=== PATIENT | female | born 1990 | race Caucasian/White ===

== ENCOUNTER → 2017-10-25 | Outpatient (CLI) | payer BC ==
--- NOTE | 2017-10-25 08:16 | US ---
EXAMINATION TYPE: US transvaginal DATE OF EXAM: 10/25/2017 COMPARISON: 12/31/2004 CLINICAL HISTORY: 27-year-old female R63.5 abnormal weight gain; patient's concern is for PCOS; mense s are regular TECHNIQUE: Transvaginal (TV) per order. Date of LMP: 10/08/2017 Findings: Uterus: Retroverted measuring 7.9 x 3.3 x 3.5 cm. Small amount of fluid along the endocervical jeff l. Endometrial Stripe: 1.0 cm, within normal limits for day 17 of the menstrual cycle. Right Ovary: 2.4 x 2.4 x 1.4 cm for a volume of 4.3 mL. There is a 1.7 cm dominant follicle or funct ional cyst within. Left Ovary: 2.6 x 2.8 x 1.9 cm for a volume of 6.9 mL. Multiple follicles are present of varying siz es, many of which are peripherally oriented but some remain centrally in the ovary. Largest measures 9 mm with some internal debris or hemorrhage. No evident adnexal abnormality. Small amount of cul-de-sac free fluid likely physiologic. IMPRESSION: 1. Ovarian sizes as above. While there are multiple follicles in the left ovary, the overall size of the ovaries does not meet criteria for polycystic ovaries. Further clinical correlation recommended. Ultrasound follow-up as indicated. 2. A 1 cm thick endometrial stripe within normal limits for day 17. 3. Small amount of cul-de-sac free fluid.
== END | disposition home or self-care (01) ==
LOC: RADUSWWP 06:57
PROVIDERS: ATTEND Family Medicine
DX: R63.5 Abnormal weight gain (principal)
CPT/HCPCS: 76830

== ENCOUNTER 2018-11-30 04:08 | Emergency (ER) | payer BC ==
[2018-11-30 04:17] VITALS: RESP 18; TEMP 98.1
[2018-11-30] MEDS ORDERED: ONDANSETRON 4 MG/2 ML VIAL IVP STA (04:34)
[2018-11-30] MEDS ORDERED: SODIUM CHLORIDE 0.9% 1,000 ML IV STA (04:34)
--- NOTE | 2018-11-30 04:35 | ED ---
Nausea/Vomiting/Diarrhea HPI - General Chief complaint: Nausea/Vomiting/Diarrhea Stated complaint: Diarrhea Time Seen by Provider: 11/30/18 04:34 Source: patient Mode of arrival: ambulatory Limitations: physical limitation - History of Present Illness Initial comments: Lydia is a previously healthy 28-year-old female presents to the emergency department today for evaluation of nausea vomiting and diarrhea. Patient reports that throughout the day on Wednesday she had multiple episodes of nonbloody diarrhea. She had some mild abdominal cramping. She reports that she went about her usual time but woke around 1 AM with nausea and she's had a couple episodes of nonbloody nonbilious emesis. Patient reports she has mild epigastric abdominal discomfort, in addition she was feeling lightheaded and was concerned she may be dehydrated which prompted her come to the ER for evaluation. - Related Data Home Medications Medication Instructions Recorded Confirmed Loratadine [Claritin] 10 mg PO DAILY 11/30/18 11/30/18 Previous Rx's Medication Instructions Recorded Ondansetron [Zofran ODT] 4 mg PO Q8HR #12 tab 11/30/18 Allergies Allergy/AdvReac Type Severity Reaction Status Date / Time cefuroxime [From Ceftin] Allergy Rash/Hives Verified 11/30/18 04:17 Review of Systems ROS Statement: Those systems with pertinent positive or pertinent negative responses have been documented in the HPI. ROS Other: All systems not noted in ROS Statement are negative. Past Medical History Past Medical History: No Reported History History of Any Multi-Drug Resistant Organisms: None Reported Past Surgical History: Adenoidectomy, Tonsillectomy Past Psychological History: No Psychological Hx Reported Smoking Status: Never smoker Past Alcohol Use History: Occasional Past Drug Use History: None Reported General Exam - General Exam Comments Initial Comments: Physical Exam GENERAL: Patient is well-developed and well-nourished. Patient is nontoxic and well- hydrated and is in no distress. HENT: Normocephalic, Atraumatic. EYES: PERRL, EOMI PULMONARY: Unlabored respirations. No audible rales rhonchi or wheezing was noted. CARDIOVASCULAR: There is a regular rate and rhythm without any murmurs gallops or rubs. ABDOMEN: Soft and nontender with normal bowel sounds. SKIN: Skin is clear with no lesions or rashes and otherwise unremarkable. : Deferred NEUROLOGIC: Patient is alert and oriented x3. Moving all extremities spontaneously MUSCULOSKELETAL: Normal extremities with adequate strength and full range of motion. No lower extremity swelling or edema. No calf tenderness. PSYCHIATRIC: Normal psychiatric evaluation. Limitations: no limitations Limitations: physical limitation Course Vital Signs 11/30/18 11/30/18 04:12 05:26 Temperature 98.1 F Pulse Rate 108 H 96 Respiratory 18 18 Rate Blood Pressure 137/91 119/65 O2 Sat by Pulse 99 99 Oximetry Medical Decision Making - Medical Decision Making Patient was seen and evaluated, history is obtained from patient and review of medical record Labs, Zofran and IV fluids ordered Labs were unremarkable Results patient was reevaluated she reports feeling much better after Zofran and fluids. Results were discussed with the patient was comfortable with the plan for discharge home and outpatient follow-up. Patient will be given a Zofran ODT starter pack as well as prescription for Zofran, the importance of oral rehydration therapy was discussed with the patient. All questions pertaining care were answered return parameters were discussed patient was discharged home in stable condition. - Lab Data Result diagrams: 11/30/18 04:45 11/30/18 04:45 Lab Results 11/30/18 11/30/18 11/30/18 Range/Units 04:37 04:37 04:45 WBC 9.9 (3.8-10.6) k/uL RBC 4.82 (3.80-5.40) m/uL Hgb 14.1 (11.4-16.0) gm/dL Hct 44.3 (34.0-46.0) % MCV 91.8 (80.0-100.0) fL MCH 29.3 (25.0-35.0) pg MCHC 31.9 (31.0-37.0) g/dL RDW 15.0 (11.5-15.5) % Plt Count 268 (150-450) k/uL Neutrophils % 87 % Lymphocytes % 9 % Monocytes % 3 % Eosinophils % 1 % Basophils % 0 % Neutrophils # 8.5 H (1.3-7.7) k/uL Lymphocytes # 0.9 L (1.0-4.8) k/uL Monocytes # 0.3 (0-1.0) k/uL Eosinophils # 0.1 (0-0.7) k/uL Basophils # 0.0 (0-0.2) k/uL Sodium (137-145) mmol/L Potassium (3.5-5.1) mmol/L Chloride (98-107) mmol/L Carbon Dioxide (22-30) mmol/L Anion Gap mmol/L BUN (7-17) mg/dL Creatinine (0.52-1.04) mg/dL Est GFR (CKD-EPI)AfAm (>60 ml/min/1.73 sqM) Est GFR (CKD-EPI)NonAf (>60 ml/min/1.73 sqM) Glucose (74-99) mg/dL Calcium (8.4-10.2) mg/dL Total Bilirubin (0.2-1.3) mg/dL AST (14-36) U/L ALT (9-52) U/L Alkaline Phosphatase (38-126) U/L Total Protein (6.3-8.2) g/dL Albumin (3.5-5.0) g/dL Lipase (23-300) U/L Urine Color Light Yellow Urine Appearance Clear (Clear) Urine pH 5.0 (5.0-8.0) Ur Specific [place] 1.021 (1.001-1.035) Urine Protein Negative (Negative) Urine Glucose (UA) Negative (Negative) Urine Ketones 3+ H (Negative) Urine Blood Negative (Negative) Urine Nitrite Negative (Negative) Urine Bilirubin Negative (Negative) Urine Urobilinogen <2.0 (<2.0) mg/dL Ur Leukocyte Esterase Negative (Negative) Urine HCG, Qual Not Detected (Not Detectd) 11/30/18 Range/Units 04:45 WBC (3.8-10.6) k/uL RBC (3.80-5.40) m/uL Hgb (11.4-16.0) gm/dL Hct (34.0-46.0) % MCV (80.0-100.0) fL MCH (25.0-35.0) pg MCHC (31.0-37.0) g/dL RDW (11.5-15.5) % Plt Count (150-450) k/uL Neutrophils % % Lymphocytes % % Monocytes % % Eosinophils % % Basophils % % Neutrophils # (1.3-7.7) k/uL Lymphocytes # (1.0-4.8) k/uL Monocytes # (0-1.0) k/uL Eosinophils # (0-0.7) k/uL Basophils # (0-0.2) k/uL Sodium 137 (137-145) mmol/L Potassium 3.8 (3.5-5.1) mmol/L Chloride 108 H (98-107) mmol/L Carbon Dioxide 20 L (22-30) mmol/L Anion Gap 9 mmol/L BUN 11 (7-17) mg/dL Creatinine 0.45 L (0.52-1.04) mg/dL Est GFR (CKD-EPI)AfAm >90 (>60 ml/min/1.73 sqM) Est GFR (CKD-EPI)NonAf >90 (>60 ml/min/1.73 sqM) Glucose 118 H (74-99) mg/dL Calcium 8.9 (8.4-10.2) mg/dL Total Bilirubin 0.7 (0.2-1.3) mg/dL AST 20 (14-36) U/L ALT 17 (9-52) U/L Alkaline Phosphatase 60 (38-126) U/L Total Protein 7.3 (6.3-8.2) g/dL Albumin 4.5 (3.5-5.0) g/dL Lipase 42 (23-300) U/L Urine Color Urine Appearance (Clear) Urine pH (5.0-8.0) Ur Specific [place] (1.001-1.035) Urine Protein (Negative) Urine Glucose (UA) (Negative) Urine Ketones (Negative) Urine Blood (Negative) Urine Nitrite (Negative) Urine Bilirubin (Negative) Urine Urobilinogen (<2.0) mg/dL Ur Leukocyte Esterase (Negative) Urine HCG, Qual (Not Detectd) Disposition Clinical Impression: Nausea vomiting and diarrhea Disposition: HOME SELF-CARE Instructions (If sedation given, give patient instructions): Acute Nausea and Vomiting (ED) Prescriptions: Ondansetron [Zofran ODT] 4 mg PO Q8HR #12 tab Is patient prescribed a controlled substance at d/c from ED?: No Referrals: Russell Montoya MD [Primary Care Provider] - 1-2 days
[2018-11-30 04:48] LABS: Appearance,Urine Clear (Clear); Bilirubin,Urine Negative (Negative); Blood,Urine Negative (Negative); Color,Urine Light Yellow; Glucose,Urine (UA) Negative (Negative); Ketones,Urine 3+ (Negative); Leukocyte Esterase,Urine Negative (Negative); Nitrite,Urine Negative (Negative); Protein,Urine Negative (Negative); Specific Gravity,Urine 1.021 (1.001-1.035); Urobilinogen,Urine <2.0 mg/dL (<2.0)
[2018-11-30 04:54] LABS: Basophils % (A) 0 %; Eosinophils # (A) 0.1 k/uL (0-0.7); Eosinophils % (A) 1 %; HCT 44.3 % (34.0-46.0); HGB 14.1 gm/dL (11.4-16.0); Lymphocytes # (A) 0.9 k/uL (1.0-4.8); Lymphocytes % (A) 9 %; MCH 29.3 pg (25.0-35.0); MCHC 31.9 g/dL (31.0-37.0); MCV 91.8 fL (80.0-100.0); Mean Platelet Volume 6.2; Monocytes # (A) 0.3 k/uL (0-1.0); Monocytes % (A) 3 %; Neutrophils # (A) 8.5 k/uL (1.3-7.7); Neutrophils % (A) 87 %; Platelet Count 268 k/uL (150-450); RBC 4.82 m/uL (3.80-5.40); WBC 9.9 k/uL (3.8-10.6)
[2018-11-30 05:09] LABS: ALT 17 U/L (9-52); AST 20 U/L (14-36); Albumin 4.5 g/dL (3.5-5.0); Alkaline Phosphatase 60 U/L (38-126); Blood Urea Nitrogen 11 mg/dL (7-17); Calcium 8.9 mg/dL (8.4-10.2); Carbon Dioxide 20 mmol/L (22-30); Glucose 118 mg/dL (74-99); Lipase 42 U/L (23-300); Potassium 3.8 mmol/L (3.5-5.1); Sodium 137 mmol/L (137-145); Total Bilirubin 0.7 mg/dL (0.2-1.3); Total Protein 7.3 g/dL (6.3-8.2)
[2018-11-30 05:17] LABS: Anion Gap 9 mmol/L; Chloride 108 mmol/L (98-107)
[2018-11-30 05:28] VITALS: BP 119/65; PULSE 96
[2018-11-30] MEDS ORDERED: ONDANSETRON 4 MG ODT STARTER PACK 2 TAB BTL PO STA (05:54)
== END 2018-11-30 06:01 | disposition home or self-care (01) ==
LOC: EC 04:08
DX: R11.2 Nausea with vomiting, unspecified (principal); R19.7 Diarrhea, unspecified; R10.13 Epigastric pain; Z79.899 Other long term (current) drug therapy; Z88.1 Allergy status to other antibiotic agents
CPT/HCPCS: 36415; 80053; 83690; 85025; 81003; 81025; 99283; 96374; 96361; J2405; S0119

== ENCOUNTER 2020-07-27 22:35 | Inpatient (IN) | payer BC ==
[2020-07-27 22:51] LABS: Appearance,Urine Clear (Clear); Bilirubin,Urine Negative (Negative); Blood,Urine Negative (Negative); Color,Urine Light Yellow; Glucose,Urine (UA) Negative (Negative); Ketones,Urine Negative (Negative); Leukocyte Esterase,Urine Negative (Negative); Nitrite,Urine Negative (Negative); PH, Urine 7.5 (5.0-8.0); Protein,Urine Negative (Negative); Specific Gravity,Urine 1.006 (1.001-1.035); Urobilinogen,Urine <2.0 mg/dL (<2.0)
[2020-07-27 23:11] LABS: Creatinine,Urine Random 18.5 mg/dL; Protein/Creatinine Ratio,Urine 0.703
[2020-07-27 23:38] LABS: Basophils # (A) 0.1 k/uL (0-0.2); Basophils % (A) 1 %; Eosinophils # (A) 0.1 k/uL (0-0.7); Eosinophils % (A) 1 %; HGB 13.2 gm/dL (11.4-16.0); Lymphocytes % (A) 22 %; MCH 31.4 pg (25.0-35.0); MCHC 34.6 g/dL (31.0-37.0); MCV 90.7 fL (80.0-100.0); Mean Platelet Volume 6.7; Monocytes # (A) 0.6 k/uL (0-1.0); Monocytes % (A) 7 %; Neutrophils # (A) 6.1 k/uL (1.3-7.7); Neutrophils % (A) 69 %; Platelet Count 226 k/uL (150-450); RBC 4.19 m/uL (3.80-5.40); RDW 12.5 % (11.5-15.5); WBC 8.9 k/uL (3.8-10.6)
[2020-07-27 23:47] LABS: INR 0.9 (<1.2); Partial Thromboplastin Time 22.9 sec (22.0-30.0); Prothrombin Time 9.5 sec (9.0-12.0)
[2020-07-27 23:54] LABS: ALT 18 U/L (4-34); AST 22 U/L (14-36); African American GFR (CKD) >90 (>60 ml/min/1.73 sqM); Blood Urea Nitrogen 10 mg/dL (7-17); LDH 415 U/L (313-618); Non-African American GFR(CKD) >90 (>60 ml/min/1.73 sqM); Uric Acid 4.1 mg/dL (3.7-7.4)
--- NOTE | 2020-07-28 00:34 | P.HPOB ---
History of Present Illness H&P Date: 07/28/20 Chief Complaint: High blood pressure This patient is a pleasant 30-year-old 1 para 0 female estimated date of confinement 08/20/2020 estimated gestational age 36-5/7 weeks who called me earlier this evening with complaints of an elevated blood pressure 150/90. Patient was uncertain at that time if this was accurate or not. She most recently was seen in the office on the and had a blood pressure 132/90 to 133/78. Patient's .'s be complicated by marginal previa which resolved. care is with Dr. Anderson. care otherwise has been u ncomplicated. Patient did have a headache but she said she's had this on off throughout the . No other signs or symptoms. Blood pressure on admission was 142/92. With rest it does come down but then goes back up to 130s over 90s. Preeclampsia labs are normal with the exception of elevated protein to creatinine ratio 0.7 Review of Systems Genitourinary: Reports Menstruation: Reports amenorrhea Past Medical History Past Medical History: No Reported History History of Any Multi-Drug Resistant Organisms: None Reported Past Surgical History: Adenoidectomy, Tonsillectomy Past Psychological History: No Psychological Hx Reported Smoking Status: Never smoker Past Alcohol Use History: None Reported Past Drug Use History: None Reported Medications and Allergies Home Medications Medication Instructions Recorded Confirmed Type Loratadine [Claritin] 10 mg PO DAILY 11/30/18 07/27/20 History Ondansetron [Zofran ODT] 4 mg PO Q8HR #12 tab 11/30/18 07/27/20 Rx Pnv No.95/Ferrous Fum/Folic AC 1 tab PO ONCE 07/27/20 07/27/20 History [ Multivitamin Tablet] Allergies Allergy/AdvReac Type Severity Reaction Status Date / Time cefuroxime [From Ceftin] Allergy Rash/Hives Verified 07/27/20 22:39 Exam Intake and Output 07/27/20 07/27/20 07/28/20 14:59 22:59 06:59 Other: Weight 96.615 kg - OBG Physical Exam Cervix: Cervix per the RN is 1 cm and thick Uterus: enlarged Results blood work shows she is O positive, rubella immune, RPR nonreactive, hepatitis B negative, group B strep was negative, most recent ultrasound showed 6 lbs. 10 oz. which is 87th percentile. Result Diagrams: 07/27/20 23:24 07/27/20 23:24 Abnormal Lab Results - Last 24 Hours (Table) 07/27/20 07/27/20 Range/Units 23:24 23:24 Fibrinogen 504 H (200-500) mg/dL Creatinine 0.33 L (0.52-1.04) mg/dL Assessment and Plan Assessment: This is a 30-year-old 1 para 0 female 36-5/7 weeks' gestation admitted for observation of gestational hypertension. At this time patient does not have severe features but does have an elevated protein to creatinine ratio therefore we will admit for serial blood pressures, 24-hour urine, and close observation. I did discuss with the patient possible need for delivery at 37 weeks. (1) 36 weeks gestation of Current Visit: Yes Status: Acute Code(s): Z3A.36 - 36 WEEKS GESTATION OF SNOMED Code(s): 11873713 (2) Gestational hypertension Current Visit: Yes Status: Acute Code(s): O13.9 - GESTATIONAL HTN W/O SIGNIFICANT PROTEINURIA, UNSP TRIMESTER SNOMED Code(s): 386632731
--- NOTE | 2020-07-28 06:59 | P.PN ---
Progress Note - Text Progress Note Date: 07/28/20 Patient is resting overnight without new complaints. She states that her headache has subsided. Blood pressures are completely normal. 24 urine is in process. I discussed further management with the patient and plan today is to do a nonstress tests every shift. Complete the 24-hour urine. Based on her results and blood pressures then Dr. Anderson we'll decide when to deliver or to continue monitoring. Patient is not 37 weeks at at this time.
[2020-07-29 00:52] LABS: Total Volume 24 Hour,Urine 3100 mls (800-1800)
[2020-07-29 01:05] LABS: Total Protein 24 Hour,Urine 341 mg/24hr (42.0-225.0)
[2020-07-29] MEDS ORDERED: DINOPROSTONE 10 MG INSERT.ER VAGINAL ONE (16:00)
--- NOTE | 2020-07-29 17:17 | P.PN ---
Progress Note - Text Progress Note Date: 07/29/20 Patient seen and examined at bedside. Her blood pressures have remained normal though she did had an elevated 1 upon admission. Her 24 hour urine came back 341 mg. Diagnosing her with mild preeclampsia and will move towards delivery. Her cervix currently is fingertip and thick and -3 station. heart tones are 135 with moderate variability and reactive. I will place Cervidil this evening and then amniotomy with Pitocin in the morning for induction of labor. The entire plan was discussed with the patient she expresses complete understanding.
[2020-07-29] MEDS ORDERED: BUTORPHANOL 1 MG/ML 1 ML VIAL IV PRN (19:15)
[2020-07-30] MEDS ORDERED: TERBUTALINE 1 MG/ML VIAL SQ PRN (05:22)
[2020-07-30] MEDS ORDERED: METHYLERGONOVINE 0.2 MG/ML 1 ML AMP IM PRN (05:22)
[2020-07-30] MEDS ORDERED: LIDOCAINE 0.5% (PF) 5 MG/ML (50 ML SDV) SQ PRN (05:22)
[2020-07-30] MEDS ORDERED: OXYTOCIN 10 UNIT/ML 1 ML VIAL IM PRN (05:22)
[2020-07-30] MEDS ORDERED: CARBOPROST TROMETHAMINE 250 MCG/ML 1 ML AMP IM PRN (05:22)
[2020-07-30] MEDS: LACTATED RINGERS 1,000 ML IV SCH ×4 (07:00→22:49)
[2020-07-30] MEDS: OXYTOCIN 30 UNITS/500 ML NS 30 UNIT in SALINE 1 500ML.BAG IV SCH ×2 (07:27→19:20)
[2020-07-30 07:34] LABS: Basophils % (A) 0 %; Eosinophils # (A) 0.1 k/uL (0-0.7); Eosinophils % (A) 1 %; HCT 39.7 % (34.0-46.0); Lymphocytes # (A) 1.8 k/uL (1.0-4.8); Lymphocytes % (A) 20 %; MCH 30.2 pg (25.0-35.0); MCHC 32.7 g/dL (31.0-37.0); MCV 92.6 fL (80.0-100.0); Mean Platelet Volume 6.9; Monocytes # (A) 0.4 k/uL (0-1.0); Monocytes % (A) 4 %; Neutrophils # (A) 6.7 k/uL (1.3-7.7); Neutrophils % (A) 73 %; Platelet Count 241 k/uL (150-450); RBC 4.29 m/uL (3.80-5.40); WBC 9.1 k/uL (3.8-10.6)
[2020-07-30] MEDS ORDERED: AMPICILLIN 2,000 MG in SODIUM CHLORIDE 0.9% 100 ML IVPB ONE (20:00)
[2020-07-31] MEDS: AMPICILLIN 1,000 MG in SODIUM CHLORIDE 0.9% 50 ML IVPB SCH ×3 (00:20→08:12)
[2020-07-31] MEDS ORDERED: SODIUM CHLORIDE 0.9% 100 ML BAG ONE (02:41)
[2020-07-31] MEDS ORDERED: fentaNYL (PF) 50 MCG/ML 5 ML AMP ONE (02:41)
[2020-07-31] MEDS ORDERED: ROPIVACAINE 5MG/ML 20ML VIAL ONE (02:41)
[2020-07-31] MEDS: LACTATED RINGERS 1,000 ML IV SCH ×2 (03:45→06:39)
[2020-07-31] MEDS ORDERED: ACETAMINOPHEN TAB 325 MG TAB PO PRN (09:43)
[2020-07-31] MEDS ORDERED: LANOLIN CREAM 5 GM TUBE TOPICAL PRN (09:43)
[2020-07-31] MEDS ORDERED: ZOLPIDEM 5 MG TAB PO PRN (09:43)
[2020-07-31] MEDS ORDERED: diphenhydrAMINE 50 MG/ML 1 ML VIAL IVP PRN ×2 (09:43)
[2020-07-31] MEDS ORDERED: HYDROCORTISONE 2.5% RECTAL CREAM 30 GM TUBE RECTAL PRN (09:43)
[2020-07-31] MEDS ORDERED: BENZOCAINE/MENTHOL SPRAY 1 GM/SPRAY AEROSOL TOPICAL PRN (09:43)
[2020-07-31] MEDS ORDERED: diphenhydrAMINE 50 MG CAP PO PRN (09:43)
[2020-07-31] MEDS ORDERED: SIMETHICONE 80 MG CHEWABLE PO PRN (09:43)
[2020-07-31] MEDS ORDERED: diphenhydrAMINE 25 MG CAP PO PRN (09:43)
[2020-07-31] MEDS ORDERED: OXYTOCIN 30 UNITS/500 ML NS 30 UNIT in SALINE 1 500ML.BAG IV SCH (09:45)
[2020-07-31] MEDS: IBUPROFEN 600 MG TAB PO PRN ×2 (10:28→23:33)
[2020-07-31] MEDS: SENNOSIDES-DOCUSATE SODIUM 1 EACH TAB PO SCH (20:05)
[2020-08-01] MEDS: SENNOSIDES-DOCUSATE SODIUM 1 EACH TAB PO SCH ×2 (07:49→19:48)
[2020-08-01] MEDS: IBUPROFEN 600 MG TAB PO PRN ×2 (07:50→15:25)
[2020-08-01 08:05] LABS: Basophils % (A) 0 %; Eosinophils # (A) 0.1 k/uL (0-0.7); Eosinophils % (A) 1 %; HCT 31.2 % (34.0-46.0); HGB 10.6 gm/dL (11.4-16.0); Lymphocytes # (A) 2.4 k/uL (1.0-4.8); Lymphocytes % (A) 22 %; MCH 31.3 pg (25.0-35.0); MCHC 34.1 g/dL (31.0-37.0); MCV 91.8 fL (80.0-100.0); Mean Platelet Volume 7.2; Monocytes # (A) 0.5 k/uL (0-1.0); Monocytes % (A) 5 %; Neutrophils # (A) 7.6 k/uL (1.3-7.7); Neutrophils % (A) 70 %; Platelet Count 197 k/uL (150-450); RDW 12.6 % (11.5-15.5); WBC 10.7 k/uL (3.8-10.6)
--- NOTE | 2020-08-01 11:36 | P.PN ---
Progress Note - Text Progress Note Date: 07/30/20 Patient did have Cervidil last evening. She had some contractions overnight. heart tones remained 135 with moderate variability and reactive. Her cervix is now 1 cm, 60% effaced and -3 station. Amniotomy was performed at 7:54 AM and clear, blood-tinged fluid was noted. Pitocin has been started.
--- NOTE | 2020-08-01 11:40 | P.PROBDLV ---
Vaginal Delivery Note - . Vaginal Delivery Note: 30-year-old presented at 36 weeks and 5 days with elevated blood pressures. She did have an elevated PC ratio and a 24-hour urine protein showed 341 mg. She was diagnosed with preeclampsia and induced for labor. Her cervix was fingertip, thick, -3 station. She was having some contractions but not feeling them. heart tones 135 with moderate variability and reactive. Cervidil was placed on July 29 and in July 30 in the morning she was 17 m dilated, 50% effaced, and -3 station. Amniotomy performed and blood-tinged fluid was noted. Heart tones remained category 1. Pitocin was started and she did not feel any contractions until late in the evening. At this time she was 3 cm dilated. I did start antibiotics for prolonged rupture. She was very uncomfortable on the morning of at around 2 in the morning and requested an epidural. The first epidural did not work and she required a second placement. For the morning she was very comfortable into the canal. When she awoke around 7 AM she was 87 m dilated, 90% effaced, and -2 station. Her cervix was completely dilated at 8:29 AM. She pushed, delivered a viable female over intact perineum under epidural anesthesia at 9:13 AM. Head delivered OA, tight nuchal cord immediately identified a [place] clamped and cut. Anterior shoulder delivered with gentle downward guidance followed by posterior shoulder and rest of body. Nose and mouth bulb suctioned, cord clamped and cut, infant placed mother's abdomen. Apgars 5 at 1 minute, 9 at 5 minutes, 9 at 10 minutes. Placenta delivered spontaneously, intact with three-vessel cord at 9:16 AM. Vagina, cervix, and perineum were inspected. Second-degree midline laceration was repaired with 3-0 Vicryl. Estimated blood loss 250 mL. Mother and baby in stable condition.
--- NOTE | 2020-08-01 11:41 | P.PNOBGVD ---
Subjective - Subjective Principal diagnosis: Status post normal vaginal delivery day #1 Interval history: Patient seen and examined. Denies nausea, vomiting, chest pain, shortness of breath or any calf pain. Her blood pressures have normalized. Patient reports: Reports appetite normal, Reports voiding normally, Reports pain well controlled, Reports ambulating normally : doing well Objective - Latest Vital Signs Latest vital signs: Vital Signs Temp Pulse Resp BP Pulse Ox 08/01/20 08:00 97.7 F 80 16 124/80 07/31/20 23:52 98.7 F 80 16 113/73 99 07/31/20 20:00 97.8 F 87 16 122/76 07/31/20 16:00 98.3 F 78 16 133/82 Intake and Output 07/31/20 08/01/20 08/01/20 22:59 06:59 14:59 Other: # Voids 1 1 - Exam Lungs: bilateral: normal Chest: Normal S1, Normal S2 Extremities: Present: normal Abdomen: Present: normal appearance, soft Uterus: Present: normal, firm - Labs Labs: Abnormal Lab Results - Last 24 Hours (Table) 08/01/20 Range/Units 07:43 WBC 10.7 H (3.8-10.6) k/uL RBC 3.40 L (3.80-5.40) m/uL Hgb 10.6 L (11.4-16.0) gm/dL Hct 31.2 L (34.0-46.0) % Assessment and Plan (1) Preeclampsia Current Visit: Yes Status: Acute Code(s): O14.90 - UNSPECIFIED PRE- ECLAMPSIA, UNSPECIFIED TRIMESTER SNOMED Code(s): 105584008 (2) Status post normal vaginal delivery Current Visit: Yes Status: Acute Code(s): GBD9773 - SNOMED Code(s): 971835725 Plan: 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
[2020-08-02] MEDS: SENNOSIDES-DOCUSATE SODIUM 1 EACH TAB PO SCH (08:54)
[2020-08-02] MEDS: IBUPROFEN 600 MG TAB PO PRN (08:54)
[2020-08-02 09:11] VITALS: BP 115/80; PULSE 82; RESP 18; TEMP 97.6
--- NOTE | 2020-08-17 20:16 | P.DS ---
Providers Date of admission: 07/29/20 19:00 Expected date of discharge: 08/17/20 Attending physician: Natalya Anderson Primary care physician: Stated None - Discharge Diagnosis(es) (1) Preeclampsia Status: Acute (2) Status post normal vaginal delivery Status: Acute Hospital Course: Patient was originally admitted by Dr. Roberson at 36 weeks and 5 days for 24- hour urine protein after she had a couple elevated blood pressures and a PC ratio 0.7. When the 24 urine came back it was elevated and I discussed with the patient. We decided it would be best to move towards delivery at this time. Cervidil was placed and then amniotomy and Pitocin were used for induction of labor. She did undergo a normal vaginal delivery. Her course was uncomplicated. Her blood pressures came back to normal and she denied any signs and symptoms of preeclampsia. She was discharged home on day #2 in stable condition to follow-up with me in a few weeks. Patient Condition at Discharge: Good Plan - Discharge Summary New Discharge Prescriptions: New Ibuprofen [Motrin] 600 mg PO Q6HR PRN #30 tab PRN Reason: Mild Pain Or Fever >= 100.5 No Action Loratadine [Claritin] 10 mg PO DAILY Ondansetron [Zofran ODT] 4 mg PO Q8HR #12 tab Pnv No.95/Ferrous Fum/Folic AC [ Multivitamin Tablet] 1 tab PO ONCE Discharge Medication List Loratadine [Claritin] 10 mg PO DAILY 11/30/18 [History] Ondansetron [Zofran ODT] 4 mg PO Q8HR #12 tab 11/30/18 [Rx] Pnv No.95/Ferrous Fum/Folic AC [ Multivitamin Tablet] 1 tab PO ONCE 07/27/20 [History] Ibuprofen [Motrin] 600 mg PO Q6HR PRN #30 tab 08/02/20 [Rx] Follow up Appointment(s)/Referral(s): Natalya Anderson DO [Doctor of Osteopathic Medicine] - 6 Weeks Patient Instructions/Handouts: Vaginal Delivery (DC) Discharge Disposition: HOME SELF-CARE
== END 2020-08-02 14:45 | disposition home or self-care (01) | DRG 807 ==
LOC: FBPOP 22:35 → 4FBP 07-28 00:23 → OBSVTOIN 07-29 19:00
PROVIDERS: ADMIT Obstetrics & Gynecology; ATTEND Obstetrics & Gynecology
PROC: 3E0P7VZ Introduction of Hormone into Female Reproductive, Via Natural or Artificial Opening (ICD-10-PCS; 2020-07-29)
PROC: 10907ZC Drainage of Amniotic Fluid, Therapeutic from Products of Conception, Via Natural or Artificial Opening (ICD-10-PCS; 2020-07-30)
PROC: 3E033VJ Introduction of Other Hormone into Peripheral Vein, Percutaneous Approach (ICD-10-PCS; 2020-07-30)
PROC: 00HU33Z Insertion of Infusion Device into Spinal Canal, Percutaneous Approach (ICD-10-PCS; principal; 2020-07-31)
PROC: 0KQM0ZZ Repair Perineum Muscle, Open Approach (ICD-10-PCS; principal; 2020-07-31)
PROC: 10E0XZZ Delivery of Products of Conception, External Approach (ICD-10-PCS; principal; 2020-07-31)
PROC: 3E0R3BZ Introduction of Anesthetic Agent into Spinal Canal, Percutaneous Approach (ICD-10-PCS; principal; 2020-07-31)
DX: O14.04 Mild to moderate pre-eclampsia, complicating childbirth (principal); Z37.0 Single live birth; Z3A.36 36 weeks gestation of pregnancy; O69.1XX0 Labor and delivery complicated by cord around neck, with compression, not applicable or unspecified; O70.1 Second degree perineal laceration during delivery; Z79.899 Other long term (current) drug therapy; Z90.89 Acquired absence of other organs; Z98.890 Other specified postprocedural states
CPT/HCPCS: 59025; 81003; 81050; 82565; 82570; 83615; 84156; 84450; 84460; 84520; 84550; 85025; 85384; 85610; 85730; 86850; 86900; 86901; 88307; 88313; 99215

== ENCOUNTER → 2023-09-21 | Outpatient (CLI) | payer BC ==
--- NOTE | 2023-09-22 20:40 | US ---
EXAMINATION TYPE: Transabdominal DATE OF EXAM: 09/21/2023 4:11 PM COMPARISON: NONE CLINICAL INDICATION: Female, 33 years old with history of Z36.89 ENCOUNTER FOR OTHER SPECIFIED ANTENA [employer]SE[employer]T SCR; Confirm dates and viability EXAM PERFORMED: Transabdominal (TA) EXAM MEASUREMENTS: GESTATIONAL AGE / DATING Physician Established: (11 weeks/5 days) EDC: 04/06/2024 Dates by LMP: (11 weeks/5 days) EDC: 04/06/2024 Dates by First Scan: No previous this is first scan Dates by Current Scan for: (11 weeks/6 days) EDC: 04/05/2024 MATERNAL ANATOMY Uterus: 13.7 x 7.0 x 8.4 cm Right Ovary: 3.2 x 1.9 x 3.0 cm Left Ovary: 2.8 x 3.1 x 2.8 cm Post CDS / Adnexa: wnl Presence of free fluid: No Presence of corpus luteal cyst: Left Ovary= 2.2 x 1.7 x 2.0 cm Presence of subchorionic bleed: No GESTATION / SURVEY CRL: 5.2 cm (11 weeks/6 days) MSD: wnl Heart Rate: 174 bpm Rhythm: Normal IUP: Viable IUP Nuchal Translucency 10-14wks (normal less than 3mm): 2mm Single, viable IUP- Dates above IMPRESSION: 1. Single intrauterine gestation estimated at 11 weeks 6 day gestation based on crown-rump length. Ca rdiac activity measures 174 bpm.
== END | disposition home or self-care (01) ==
LOC: RADUSWWP 15:54
PROVIDERS: ATTEND Obstetrics & Gynecology
DX: Z36.89 Encounter for other specified antenatal screening (principal)
CPT/HCPCS: 76801

== ENCOUNTER 2024-04-05 03:23 | Inpatient (IN) | payer BC ==
[2024-04-05] MEDS ORDERED: LIDOCAINE 0.5% (PF) 5 MG/ML (50 ML SDV) SQ PRN (03:54)
[2024-04-05] MEDS ORDERED: miSOPROStoL 200 MCG TAB RECTAL PRN (03:54)
[2024-04-05] MEDS ORDERED: TRANEXAMIC 1,000 MG/100ML-NACL 1,000 MG in EMPTY BAG 1 BAG IV PRN (03:54)
[2024-04-05] MEDS ORDERED: miSOPROStoL 200 MCG TAB PO PRN (03:54)
[2024-04-05] MEDS ORDERED: METHYLERGONOVINE 0.2 MG/ML 1 ML AMP IM PRN (03:54)
[2024-04-05] MEDS ORDERED: CARBOPROST TROMETHAMINE 250 MCG/ML 1 ML AMP IM PRN (03:54)
[2024-04-05] MEDS ORDERED: OXYTOCIN 10 UNIT/ML 1 ML VIAL IM PRN (03:54)
[2024-04-05] MEDS ORDERED: TERBUTALINE 1 MG/ML VIAL SQ PRN (03:54)
[2024-04-05] MEDS: LACTATED RINGERS 1,000 ML IV SCH (04:45)
[2024-04-05 04:46] LABS: Basophils % (A) 0 %; Eosinophils # (A) 0.1 k/uL (0-0.7); Eosinophils % (A) 1 %; HCT 39.6 % (34.0-46.0); HGB 12.8 gm/dL (11.4-16.0); Lymphocytes # (A) 2.2 k/uL (1.0-4.8); Lymphocytes % (A) 22 %; MCH 29.7 pg (25.0-35.0); MCHC 32.4 g/dL (31.0-37.0); MCV 91.7 fL (80.0-100.0); Mean Platelet Volume 8.4; Monocytes # (A) 0.5 k/uL (0-1.0); Monocytes % (A) 5 %; Neutrophils # (A) 6.9 k/uL (1.3-7.7); Neutrophils % (A) 70 %; Platelet Count 287 k/uL (150-450); RBC 4.32 m/uL (3.80-5.40); RDW 14.1 % (11.5-15.5); WBC 9.9 k/uL (3.8-10.6)
[2024-04-05] MEDS ORDERED: ROPIVACAINE 5 MG/ML 30 ML VIAL ONE (04:55)
[2024-04-05] MEDS ORDERED: fentaNYL (PF) 50 MCG/ML 5 ML AMP ONE (04:55)
[2024-04-05] MEDS ORDERED: SODIUM CHLORIDE 0.9% 250 ML BAG ONE (04:55)
--- NOTE | 2024-04-05 06:14 | P.HPOB ---
History of Present Illness H&P Date: 04/05/24 Chief Complaint: 39-6/7 weeks, labor Patient is a 33-year-old 2 para 0-1-0-1 admitted at 39-6/7 weeks as established by last menstrual period and confirmed by second trimester ultrasound. She is admitted in active labor with all signs reassuring, category 1 heart rate tracing. Her has been uncomplicated and group B strep status is negative. Obstetrical history: 2 para 0-1-0-1 with history of 1 delivery secondary to a history of preeclampsia. Current statistics are listed in history of present illness. EDC of 04/06/2024 was established by last menstrual period and confirmed by second trimester ultrasound. Laboratory workup demonstrates a blood type of O+ with a negative antibody screen. Rubella status is immune. The remainder of the laboratory workup was within normal limits. Early Glucola as well as second trimester Glucola were within normal limits and group B strep status is negative. Gynecologic history: Unremarkable with no history of any infections to include STDs. Review of Systems Systems is confined to history of present illness. Past Medical History Past Medical History: No Reported History History of Any Multi-Drug Resistant Organisms: None Reported Past Surgical History: Adenoidectomy, Tonsillectomy Past Psychological History: No Psychological Hx Reported Smoking Status: Never smoker Past Alcohol Use History: None Reported Past Drug Use History: None Reported Medications and Allergies Home Medications Medication Instructions Recorded Confirmed Type Loratadine [Claritin] 10 mg PO DAILY 11/30/18 04/05/24 History Ondansetron [Zofran ODT] 4 mg PO Q8HR #12 tab 11/30/18 07/27/20 Rx Pnv No.95/Ferrous Fum/Folic AC 1 tab PO ONCE 07/27/20 04/05/24 History [ Multivitamin Tablet] Ibuprofen [Motrin] 600 mg PO Q6HR PRN #30 tab 08/02/20 Rx Allergies Allergy/AdvReac Type Severity Reaction Status Date / Time cefuroxime [From Ceftin] Allergy Rash/Hives Verified 04/05/24 03:52 Exam Vital Signs Temp Pulse Resp BP Pulse Ox 04/05/24 03:51 97.8 F 110 H 16 147/96 98 Intake and Output 04/04/24 04/04/24 04/05/24 14:59 22:59 06:59 Other: Weight 113.398 kg In general, this is a well-developed, well-nourished white female in active labor and uncomfortable. Her heart has a regular rhythm and rate without murmur. Her lungs are clear to auscultation bilaterally in all [place]. Her abdomen is gravid, nondistended, has normal active bowel sounds, soft, nontender, and without any palpable masses aside from the uterine fundus. Her extremities are without any cyanosis, clubbing, or significant edema and are nontender to palpation bilaterally. Digital cervical examination demonstrates her cervix at this time to be dilated to anterior lip, 90% effaced, with a aftab bhumika and presentation at -1 station. Spontaneous rupture of membranes has been documented. Results Result Diagrams: 04/05/24 03:40 Assessment and Plan (1) Active labor at term Current Visit: Yes Status: Acute Code(s): BJD0340 - SNOMED Code(s): 92763890 Plan: Patient has been admitted for active management of labor. She will have close maternal and surveillance and expectant management will be practiced. An epidural catheter has been placed for analgesia. I would anticipate normal spontaneous vaginal delivery shortly.
[2024-04-05] MEDS: OXYTOCIN 30 UNITS/500 ML NS 30 UNIT in SALINE 1 500ML.BAG IV SCH (08:54)
[2024-04-05] MEDS ORDERED: diphenhydrAMINE 50 MG/ML 1 ML VIAL IVP PRN ×2 (09:28)
[2024-04-05] MEDS ORDERED: ZOLPIDEM 5 MG TAB PO PRN (09:28)
[2024-04-05] MEDS ORDERED: HYDROCORTISONE 2.5% RECTAL CREAM 30 GM TUBE RECTAL PRN (09:28)
[2024-04-05] MEDS ORDERED: LANOLIN CREAM 1 GM TUBE TOPICAL PRN (09:28)
[2024-04-05] MEDS ORDERED: diphenhydrAMINE 25 MG CAP PO PRN (09:28)
[2024-04-05] MEDS ORDERED: diphenhydrAMINE 50 MG CAP PO PRN (09:28)
[2024-04-05] MEDS ORDERED: SIMETHICONE 80 MG CHEWABLE PO PRN (09:28)
[2024-04-05] MEDS ORDERED: BENZOCAINE/MENTHOL SPRAY 1 GM/SPRAY AEROSOL TOPICAL PRN (09:28)
[2024-04-05] MEDS ORDERED: OXYTOCIN 30 UNITS/500 ML NS 30 UNIT in SALINE 1 500ML.BAG IV SCH (09:30)
[2024-04-05] MEDS: IBUPROFEN 600 MG TAB PO PRN (09:53)
--- NOTE | 2024-04-05 13:11 | P.PROBDLV ---
Vaginal Delivery Note - . Vaginal Delivery Note: Patient is a 33-year-old 2 para 0-1-0-1 admitted at 39-6/7 weeks as established by last menstrual period and confirmed by second trimester ultrasound. She is admitted in active labor with all signs reassuring, category 1 heart rate tracing. Her has been uncomplicated and group B strep status is negative. Her cervix was anterior lip. When she was complete at 710. She pushed, and delivered a viable male over intact perineum under epidural anesthesia Which was not working at 8:51 AM. Head delivered OA, anterior shoulder delivered gentle downward guidance for by posterior shoulder and rest of body. Nose and mouth bulb suctioned, cord clamped and cut, infant placed mother's abdomen. Apgars 9, 10, weight 8 lbs. 11 oz. Placenta delivered spontaneously, intact with three-vessel cord at 8:54 AM. Vagina, cervix, perineum inspected. Second-degree midline laceration was repaired with 3-0 Vicryl. Estimated blood loss 200 mL. Mother and baby in stable condition.
[2024-04-05] MEDS: ACETAMINOPHEN TAB 325 MG TAB PO PRN (16:26)
[2024-04-05] MEDS: SENNOSIDES-DOCUSATE SODIUM 1 EACH TAB PO SCH (20:43)
[2024-04-06 08:02] LABS: Basophils % (A) 0 %; Eosinophils % (A) 0 %; HCT 30.9 % (34.0-46.0); HGB 10.5 gm/dL (11.4-16.0); Lymphocytes # (A) 1.9 k/uL (1.0-4.8); Lymphocytes % (A) 17 %; MCH 30.6 pg (25.0-35.0); MCHC 33.9 g/dL (31.0-37.0); MCV 90.3 fL (80.0-100.0); Mean Platelet Volume 7.9; Monocytes # (A) 0.4 k/uL (0-1.0); Monocytes % (A) 4 %; Neutrophils # (A) 8.6 k/uL (1.3-7.7); Neutrophils % (A) 77 %; Platelet Count 204 k/uL (150-450); RBC 3.43 m/uL (3.80-5.40); RDW 14.5 % (11.5-15.5); WBC 11.2 k/uL (3.8-10.6)
[2024-04-06 08:18] VITALS: BP 118/80; PULSE 69; RESP 16; TEMP 97.5
--- NOTE | 2024-04-06 09:20 | P.DS ---
Providers Date of admission: 04/05/24 03:45 Expected date of discharge: 04/06/24 Attending physician: Natalya Anderson Primary care physician: Stated None - Discharge Diagnosis(es) (1) Status post normal vaginal delivery Current Visit: No Status: Acute Hospital Course: Patient presented in active labor. She underwent a normal vaginal delivery. course was uneventful. She denies nausea, vomiting, chest pain, shortness of breath or calf pain. Will be discharged home day #1 in stable condition to follow-up with me in 6 weeks. Plan - Discharge Summary New Discharge Prescriptions: New Ibuprofen [Motrin] 600 mg PO Q6HR PRN #30 tab PRN Reason: Mild Pain (Scale 1 To 3) No Action Loratadine [Claritin] 10 mg PO DAILY Ondansetron [Zofran ODT] 4 mg PO Q8HR #12 tab Pnv No.95/Ferrous Fum/Folic AC [ Multivitamin Tablet] 1 tab PO ONCE Ibuprofen [Motrin] 600 mg PO Q6HR PRN #30 tab PRN Reason: Mild Pain Or Fever >= 100.5 Discharge Medication List Loratadine [Claritin] 10 mg PO DAILY 11/30/18 [History] Ondansetron [Zofran ODT] 4 mg PO Q8HR #12 tab 11/30/18 [Rx] Pnv No.95/Ferrous Fum/Folic AC [ Multivitamin Tablet] 1 tab PO ONCE 07/27/20 [History] Ibuprofen [Motrin] 600 mg PO Q6HR PRN #30 tab 08/02/20 [Rx] Ibuprofen [Motrin] 600 mg PO Q6HR PRN #30 tab 04/06/24 [Rx] Follow up Appointment(s)/Referral(s): Natalya Anderson DO [Doctor of Osteopathic Medicine] - 05/17/24 1:15 pm Discharge Disposition: HOME SELF-CARE
== END 2024-04-06 14:15 | disposition home or self-care (01) | DRG 807 ==
LOC: FBPOP 03:23 → 4FBP 03:45
PROVIDERS: ADMIT Obstetrics & Gynecology; ATTEND Obstetrics & Gynecology
PROC: 10E0XZZ Delivery of Products of Conception, External Approach (ICD-10-PCS; principal; 2024-04-05)
PROC: 0KQM0ZZ Repair Perineum Muscle, Open Approach (ICD-10-PCS; 2024-04-05)
DX: O70.1 Second degree perineal laceration during delivery (principal); Z37.0 Single live birth; Z3A.39 39 weeks gestation of pregnancy

== ENCOUNTER 2024-04-11 21:26 | Observation (INO) | payer BC ==
[2024-04-11] MEDS: ONDANSETRON 4 MG TAB PO PRN (22:05)
[2024-04-11 22:20] LABS: Basophils # (A) 0.1 k/uL (0-0.2); Basophils % (A) 1 %; Eosinophils # (A) 0.2 k/uL (0-0.7); Eosinophils % (A) 2 %; HCT 35.9 % (34.0-46.0); HGB 11.5 gm/dL (11.4-16.0); Lymphocytes % (A) 21 %; MCH 29.1 pg (25.0-35.0); MCHC 32.1 g/dL (31.0-37.0); MCV 90.9 fL (80.0-100.0); Mean Platelet Volume 6.9; Monocytes # (A) 0.4 k/uL (0-1.0); Monocytes % (A) 4 %; Neutrophils # (A) 6.9 k/uL (1.3-7.7); Neutrophils % (A) 72 %; Platelet Count 393 k/uL (150-450); RBC 3.95 m/uL (3.80-5.40); RDW 13.9 % (11.5-15.5); WBC 9.7 k/uL (3.8-10.6)
[2024-04-11 22:44] LABS: ALT 51 U/L (4-34); AST 49 U/L (14-36); African American GFR (CKD) >90 (>60 ml/min/1.73 sqM); Albumin 3.6 g/dL (3.5-5.0); Alkaline Phosphatase 145 U/L (38-126); Anion Gap 6 mmol/L; Blood Urea Nitrogen 11 mg/dL (7-17); Carbon Dioxide 24 mmol/L (22-30); Chloride 107 mmol/L (98-107); Glucose 96 mg/dL (74-99); LDH 364 U/L (120-246); Non-African American GFR(CKD) >90 (>60 ml/min/1.73 sqM); Potassium 3.9 mmol/L (3.5-5.1); Sodium 137 mmol/L (137-145); Total Bilirubin 0.3 mg/dL (0.2-1.3); Total Protein 6.1 g/dL (6.3-8.2); Uric Acid 5.1 mg/dL (3.7-7.4)
[2024-04-11 23:05] LABS: Appearance,Urine Cloudy (Clear); Bacteria,Urine Moderate /hpf; Bilirubin,Urine Negative (Negative); Blood,Urine Moderate (Negative); Color,Urine Colorless; Glucose,Urine (UA) Negative (Negative); Ketones,Urine Negative (Negative); Leukocyte Esterase,Urine Large (Negative); Mucus,Urine Rare /hpf; Nitrite,Urine Negative (Negative); PH, Urine 6.5 (5.0-8.0); Protein,Urine Negative (Negative); RBC,Urine 16 /hpf (0-5); Specific Gravity,Urine 1.007 (1.001-1.035); Urobilinogen,Urine <2.0 mg/dL (<2.0); WBC,Urine >182 /hpf (0-5)
[2024-04-11 23:06] LABS: Creatinine,Urine Random 22.2 mg/dL
[2024-04-12] MEDS: LABETALOL 100 MG TAB PO SCH (00:16)
[2024-04-12 01:01] VITALS: RESP 16
[2024-04-12 04:51] LABS: Basophils % (A) 0 %; Eosinophils # (A) 0.1 k/uL (0-0.7); Eosinophils % (A) 1 %; HCT 34.6 % (34.0-46.0); HGB 11.1 gm/dL (11.4-16.0); Lymphocytes # (A) 1.9 k/uL (1.0-4.8); Lymphocytes % (A) 22 %; MCH 29.3 pg (25.0-35.0); MCHC 32.2 g/dL (31.0-37.0); MCV 91.2 fL (80.0-100.0); Monocytes # (A) 0.4 k/uL (0-1.0); Monocytes % (A) 4 %; Neutrophils % (A) 69 %; Platelet Count 382 k/uL (150-450); RDW 14.2 % (11.5-15.5); WBC 8.7 k/uL (3.8-10.6)
[2024-04-12 05:05] LABS: ALT 43 U/L (4-34); AST 40 U/L (14-36); African American GFR (CKD) >90 (>60 ml/min/1.73 sqM); Blood Urea Nitrogen 12 mg/dL (7-17); LDH 314 U/L (120-246); Magnesium 1.7 mg/dL (1.6-2.3); Non-African American GFR(CKD) >90 (>60 ml/min/1.73 sqM); Uric Acid 5.3 mg/dL (3.7-7.4)
[2024-04-12 05:22] LABS: INR 0.9 (<1.2); Partial Thromboplastin Time 24.1 sec (22.0-30.0); Prothrombin Time 10.2 sec (10.0-12.5)
[2024-04-12] MEDS: ACETAMINOPHEN TAB 325 MG TAB PO STA (08:36)
[2024-04-12 13:02] VITALS: BP 118/80; PULSE 73; TEMP 98.2
[2024-04-12] MEDS: IBUPROFEN 600 MG TAB PO STA (13:28)
--- NOTE | 2024-05-28 11:37 | P.MSEPDOC ---
Presenting Problems - Arrival Data Date of Arrival on Unit: 04/12/24 Time of Arrival on Unit: 21:26 Mode of Transport: Wheelchair - Complaint OB-Reason for Admission/Chief Complaint: PIH Comment: Patient presents to triage with complaints of taking BP at home and geting elevated blood pressure. Called the section chief and was instructed to come in. Medical History - Information : 2 Para: 2 Term: 2 : 0 Abortions: Spontaneous or Elective: 0 Number of Living Children: 0 - Gestational Age Gestational Age by CASEY (wks/days): 41 Weeks and 0 Days Review of Systems - Review of Systems Constitutional: No problems Breast: No problems ENT: No problems Cardiovascular: No problems Respiratory: No problems Gastrointestinal: No problems Genitourinary: No problems Musculoskeletal: No problems Neurological: No problems Skin: No problems Vital Signs - Temperature Temperature: 98.2 F Temperature Source: Oral - Pulse Pulse Oximetery Pulse Rate: 73 Pulse Assessment Method: Automatic Cuff - Respirations Respiratory Rate: 16 - Blood Pressure Right Arm Blood Pressure: 118/80 Blood Pressure Mean: 92 Blood Pressure Source: Automatic Cuff Physician Notification - Physician Notified Physician Notified Date: 04/11/24 Physician Notified Time: 21:56 Physician: Lauren Perez New Order Received: Yes - Notification Comment Comment: Spoke with Dr. Perez, Pt of Dr. Anderson, 6 days . Had an elevated BP at home 180s/106. Pt complains of nausea but no other symptoms. Discussed most recent BPs while in triage. Order for [facility] labs including CBC, CMP, uric acid. PCR not needed due to pt being delivered. Continue serial BPs, order for 4mg PO zofran PRN. RN to call MD back with lab results and BPs. Maternal Triage Index - Maternal Triage Index Presenting for scheduled procedure w/no complaint: No - Stat/Priority 1 Stat Priority 1: No - Urgent/Priority 2 Urgent Priority 2: Yes Provider Notified: Lauren Perez Provider Notified Time: 21:56 Criteria Met for Priority 2: BPs >140s/90s and nauseous, 6 days Disposition - Disposition OB Disposition: Admit I agree with the RN Medical Screening Exam: Yes Case reviewed; plan agreed upon as documented in EMR&OBIX.: Yes Diagnosis: RELATED CONDITIONS, UNSPECIFIED, THIRD TRIMESTER
== END 2024-04-12 13:40 | disposition home or self-care (01) ==
LOC: FBPOP 21:26 → 4FBP 23:48
PROVIDERS: ADMIT Obstetrics & Gynecology Obstetrics; ATTEND Obstetrics & Gynecology Obstetrics
DX: O13.5 Gestational [pregnancy-induced] hypertension without significant proteinuria, complicating the puerperium (principal)
CPT/HCPCS: 82570; 80053; 84156; 82565; 83615 ×2; 83735; 84450; 84460; 84520; 84550 ×2; 85025 ×2; 85610; 85730; 81001; G0378 ×2; G0463; 99213

== ENCOUNTER → 2024-10-03 | Outpatient (CLI) | payer BC ==
[2024-10-03 12:47] LABS: Basophils # (A) 0.04 X 10*3/uL (0.00-0.10); Basophils % (A) 0.8 %; Eosinophils # (A) 0.04 X 10*3/uL (0.04-0.35); Eosinophils % (A) 0.8 %; HCT 41.8 % (37.2-46.3); HGB 13.1 g/dL (12.0-15.0); Lymphocytes % (A) 30.4 %; MCH 27.8 pg (27.0-32.0); MCHC 31.3 g/dL (32.0-37.0); MCV 88.7 FL (80.0-97.0); Mean Platelet Volume 9.3 FL (9.5-12.2); Monocytes # (A) 0.43 X 10*3/uL (0.20-1.00); Monocytes % (A) 8.7 %; NRBC Per 100 WBC 0 X 10*3/uL (0.00-0.01); Neutrophils # (A) 2.91 X 10*3/uL (1.80-7.70); Neutrophils % (A) 59.1 %; Platelet Count 292 X 10*3/uL (140-440); RBC 4.71 X 10*6/uL (4.10-5.20); WBC 4.93 X 10*3/uL (4.50-10.00)
[2024-10-03 13:21] LABS: ALT 25 U/L (8-44); AST 22 U/L (13-35); Albumin 4.2 g/dL (3.8-4.9); Albumin/Globulin Ratio 1.68 Ratio (1.60-3.17); Alkaline Phosphatase 153 U/L (41-126); BUN/Creat Ratio 13.83 Ratio (12.00-20.00); Blood Urea Nitrogen 8.3 mg/dL (9.0-27.0); Calcium 9.4 mg/dL (8.7-10.3); Carbon Dioxide 25.1 mmol/L (21.6-31.8); Chloride 106 mmol/L (96-109); Chol/HDL Ratio 2.59 Ratio; Ferritin 47.1 ng/mL (10.0-291.0); Globulin 2.5 g/dL (1.6-3.3); Glucose 96 mg/dL (70-110); Iron 76 UG/DL (50-170); LDL Cholesterol,Calculated 107.3 mg/dL (0.0-131.0); Sodium 141 mmol/L (135-145); T4, Free (Free Thyroxine) 1.01 ng/dL (0.80-1.80); Total Bilirubin <0.2 mg/dL (0.3-1.2); Total Iron Binding Capacity 329 UG/DL (228-460); Total Protein 6.7 g/dL (6.2-8.2); VLDL Calculation 14.34 mg/dL (5.00-40.00)
== END | disposition home or self-care (01) ==
LOC: LABWHC1 07:34
PROVIDERS: ATTEND Family Medicine
DX: Z00.00 Encounter for general adult medical examination without abnormal findings (principal); R53.83 Other fatigue
CPT/HCPCS: 36415; 80053; 80061; 82306; 82607; 82728; 82746; 83036; 83540; 83550; 84439; 84443; 85025